=== PATIENT | female | born 1990 ===

== ENCOUNTER 2017-05-02 00:20 | Emergency (ER) | payer MEDICAID ==
[2017-05-02 00:30] VITALS: RESP 16; TEMP 98.1; O2SAT 98
[2017-05-02] MEDS ORDERED: Albuterol-Ipratrop 3 mg / 0.5 (3 ml) UD ONE (00:39)
--- NOTE | 2017-05-02 01:34 | C.PDOC ---
History Of Present Illness 26 year old female with a Hx of asthma presents to the ER with a complaint of cough and congestion for the past week that has worsened tonight. Patient states the cough is persistent causing post tussive vomiting. Patient reports her inhaler medication has therefore has not used it and has been using vicks. Denies fever or chest pain. Time Seen by Provider: 05/02/17 00:31 Chief Complaint (Nursing): Cough, Cold, Congestion History Per: Patient History/Exam Limitations: no limitations Onset/Duration Of Symptoms: Days Location Of Pain: None Sick Contacts (Context): None Associated Symptoms: Cough, Nasal Congestion, Vomiting (Post tussive). denies: Fever Ear Symptoms: Bilateral: None Recent travel outside of the [place]: No Past Medical History Reviewed: Historical Data, Nursing Documentation, Vital Signs Vital Signs: Last Vital Signs Temp 98.1 F 05/02/17 02:04 Pulse 84 05/02/17 02:04 Resp 16 05/02/17 02:04 BP 120/90 05/02/17 02:04 Pulse Ox 98 05/02/17 03:01 - Medical History PMH: Asthma Surgical History: No Surg Hx Family History: States: Unknown Family Hx - Social History Hx Alcohol Use: Yes Hx Substance Use: No - Immunization History Hx Tetanus Toxoid Vaccination: Yes Hx Influenza Vaccination: Yes Hx Pneumococcal Vaccination: No Review Of Systems Constitutional: Negative for: Fever ENT: Positive for: Nose Congestion Cardiovascular: Negative for: Chest Pain Respiratory: Positive for: Cough Gastrointestinal: Positive for: Vomiting (Post tussive) Physical Exam - Physical Exam Appears: Non-toxic, No Acute Distress Skin: Normal Color, Warm, Dry Head: Atraumatic, Normacephalic Eye(s): bilateral: Normal Inspection, EOMI Ear(s): Bilateral: Normal Nose: Other (Congestion) Oral Mucosa: Moist Throat: Normal, No Erythema, No Exudate Neck: Normal, Supple Chest: Symmetrical, No Tenderness Cardiovascular: Rhythm Regular Respiratory: Normal Breath Sounds, No Accessory Muscle Use, No Rales, No Rhonchi , No Wheezing Gastrointestinal/Abdominal: Soft, No Tenderness Neurological/Psych: Oriented x3, Normal Speech, Normal Cognition ED Course And Treatment O2 Sat by Pulse Oximetry: 98 (room air) Pulse Ox Interpretation: Normal Progress Note: Nebulizer treatment administered. Patient reports improvement of condition after nebulizer treatment, no chest pain. No SOB. Pt will discharge home with Rx and instructions to follow up with PMD in 1-2 days. Disposition - Disposition Disposition: HOME/ ROUTINE Disposition Time: 01:32 Condition: STABLE Additional Instructions: Follow up with PMD in 1-2 days. Return to ER if symptoms persist or worsen. Prescriptions: Albuterol 0.083% [Albuterol 0.083% Inhal Linnea (2.5 mg/3 ml) UD] 2.5 mg IH Q6 PRN #30 neb PRN Reason: Shortness Of Breath Azithromycin [Zithromax] 250 mg PO DAILY #6 tab Oxymetazoline 0.05% [Afrin 0.05%] 1 spr NS Q12H #1 bottle predniSONE [Prednisone] 40 mg PO DAILY #8 tab Instructions: Acute Bronchitis (ED) Forms: [facility] (Sudanese) - Clinical Impression Clinical Impression: Bronchitis - Scribe Statement The provider has reviewed the documentation as recorded by the Scribe Miles Hays All medical record entries made by the Justinibshirlene were at my direction and personally dictated by me. I have reviewed the chart and agree that the record accurately reflects my personal performance of the history, physical exam, medical decision making, and the department course for this patient. I have also personally directed, reviewed, and agree with the discharge instructions and disposition.
[2017-05-02 02:05] VITALS: BP 120/90; PULSE 84
== END 2017-05-02 02:05 | disposition home or self-care (01) ==
LOC: C.ER 00:20
DX: J40 Bronchitis, not specified as acute or chronic (principal)

== ENCOUNTER 2017-10-16 06:35 | Emergency (ER) | payer MEDICAID, OTHER ==
[2017-10-16 06:43] VITALS: RESP 18; O2SAT 98
[2017-10-16] MEDS ORDERED: Aluminum Hydroxide/Magnesium Hydroxide Susp (30 mL) PO STA (07:17)
--- NOTE | 2017-10-16 07:39 | C.PDOC ---
History Of Present Illness Patient presents to ED with c/o epigastric abdominal pain associated with nausea developed 2 hours [employer]. Patient states last night she took 2 naprosen for sore throat and woke up this more with pain. Patient denies vomiting, diarrhea, dysuria, vaginal bleeding, vaginal discharge or any other complaints at this time. Time Seen by Provider: 10/16/17 07:11 Chief Complaint (Nursing): Abdominal Pain History Per: Patient History/Exam Limitations: no limitations Onset/Duration Of Symptoms: Hrs Current Symptoms Are (Timing): Still Present Location Of Pain/Discomfort: Epigastric Radiation Of Pain To:: None Past Medical History Reviewed: Historical Data, Nursing Documentation, Vital Signs Vital Signs: Last Vital Signs Temp 98 F 10/16/17 06:39 Pulse 76 10/16/17 06:39 Resp 18 10/16/17 06:39 BP 134/95 H 10/16/17 06:39 Pulse Ox 98 10/16/17 09:41 - Medical History PMH: Asthma Surgical History: No Surg Hx Family History: States: No Known Family Hx - Social History Hx Alcohol Use: Yes Hx Substance Use: No - Immunization History Hx Tetanus Toxoid Vaccination: Yes Hx Influenza Vaccination: Yes Hx Pneumococcal Vaccination: No Review Of Systems Except As Marked, All Systems Reviewed And Found Negative. Gastrointestinal: Positive for: Nausea, Abdominal Pain Physical Exam - Physical Exam Appears: Non-toxic, No Acute Distress Skin: Warm, Dry, No Rash Head: Atraumatic, Normacephalic Oral Mucosa: Moist Neck: Normal ROM, Supple Cardiovascular: Rhythm Regular Respiratory: Normal Breath Sounds, No Rales, No Rhonchi, No Wheezing Gastrointestinal/Abdominal: Bowel Sounds, Soft, Tenderness (Epigastric and Hypogastrium ), No Guarding, No Rebound Back: No CVA Tenderness, No Vertebral Tenderness Extremity: Normal ROM, Capillary Refill (<2 seconds) Neurological/Psych: Oriented x3, Normal Speech, Normal Cognition ED Course And Treatment - Laboratory Results Result Diagrams: 10/16/17 08:06 10/16/17 08:06 O2 Sat by Pulse Oximetry: 98 (RA) Pulse Ox Interpretation: Normal Medical Decision Making Medical Decision Making: Assessment: Abdominal pain Progress: On re evaluation patient states improvement on pain but still c/o mild nausea. More Nausea medication given, re eval pending for dispo 1021 - Patient states improvement. No further symptoms. Will discharge home to follow up with pmd in 2 dys. Disposition Counseled Patient/Family Regarding: Studies Performed, Diagnosis, Need For Followup, Rx Given - Disposition Referrals: Non [facility] Provider, [Primary Care Provider] - [facility] [Outside] Disposition: HOME/ ROUTINE Disposition Time: 10:22 Condition: IMPROVED Additional Instructions: follow up with your doctor in 2 days call to make an appointment take medications as needed return to ER if symptoms worsens or progress do not take naprosyn on an empty stomach Prescriptions: Famotidine [Pepcid] 20 mg PO BID #20 tab Ondansetron ODT [Zofran ODT] 4 mg PO TID PRN #12 odt PRN Reason: Nausea/Vomiting Instructions: Acute Abdomen (Belly Pain), Adult (DC) Forms: [facility] (Tamazight), General Discharge Instructions, Work Excuse - Clinical Impression Clinical Impression: Abdominal pain - Scribe Statement The provider has reviewed the documentation as recorded by the Justinibshirlene Guillen All medical record entries made by the Justinibshirlene were at my direction and personally dictated by me. I have reviewed the chart and agree that the record accurately reflects my personal performance of the history, physical exam, medical decision making, and the department course for this patient. I have also personally directed, reviewed, and agree with the discharge instructions and disposition.
[2017-10-16] MEDS ORDERED: Aluminum Hydroxide/Magnesium Hydroxide Susp (30 mL) ONE (07:42)
[2017-10-16 08:10] LABS: BASO % 0.4 % (0.0-2.0); EOS # 0.1 K/uL (0.0-0.7); EOS % 0.7 % (0.0-4.0); HEMOGLOBIN 13.9 g/dL (11.0-16.0); LYMPH % 8.4 % (20.0-40.0); MEAN CORPUSCULAR HEMOGLOBIN 30.8 pg (27.0-31.0); MEAN CORPUSCULAR HGB CONC 34.2 g/dL (33.0-37.0); MONO # 0.6 K/uL (0.0-0.8); MONO % 4.6 % (0.0-10.0); NEUT # 10.5 K/uL (1.8-7.0); NEUT % 85.9 % (50.0-75.0); PLATELET COUNT 441 K/uL (130-400); RBC 4.52 Mil/uL (3.80-5.20); RED CELL DISTRIBUTION WIDTH 11.9 % (11.5-14.5); WHITE BLOOD COUNT 12.2 K/uL (4.8-10.8)
[2017-10-16 08:18] LABS: SQUAMOUS EPITHIAL < 1 /hpf (0-5); URINE BILIRUBIN NEGATIVE (NEGATIVE); URINE BLOOD NEGATIVE (NEGATIVE); URINE CLARITY Clear (Clear); URINE COLOR Straw (YELLOW); URINE GLUCOSE (UA) NORMAL (Normal); URINE LEUKOCYTE ESTERASE NEG Leu/uL (Negative); URINE PROTEIN NEGATIVE (NEGATIVE); URINE UROBILINOGEN NORMAL mg/dL (0.2-1.0)
[2017-10-16 08:40] LABS: ALT/SGPT 18 U/L (9-52); AST/SGOT 26 U/L (14-36); BLOOD UREA NITROGEN 14 mg/dL (7-17); CALCIUM 9.1 mg/dl (8.6-10.4); GFR AFRICAN-AMERICAN > 60; GFR NON-AFRICAN AMERICAN > 60; LIPASE 63 U/L (23-300)
[2017-10-16 08:46] LABS: BANDS 1 % (0-2); EOSINOPHIL 1 % (0-4); MONOCYTE 5 % (0-10); NEUTROPHIL 87 % (50-75); TOTAL CELLS COUNTED 100
[2017-10-16 08:47] LABS: LYMPHOCYTE 6 % (20-40); PLATELET ESTIMATE NORMAL (NORMAL)
--- NOTE | 2017-10-16 10:18 | RAD ---
PROCEDURE: Radiographs of the chest and abdomen (obstructive series) HISTORY: abd. pain COMPARISON: No prior. TECHNIQUE: AP radiograph of the chest, with upright and supine radiographs of the abdomen. FINDINGS: CHEST: Lungs: Clear. Cardiovascular: Normal size heart. No pulmonary vascular congestion. Pleura: No pleural fluid. No pneumothorax. Other findings: None. ABDOMEN AND PELVIS: Bowel: Unremarkable bowel gas pattern. No evidence of mechanical obstruction. Free air: None. Bones: Unremarkable. Other findings: None. IMPRESSION: Unremarkable radiographs of chest and abdomen. No evidence of mechanical bowel obstruction.
[2017-10-16 10:31] VITALS: BP 113/78; PULSE 63; TEMP 98.5
== END 2017-10-16 10:37 | disposition home or self-care (01) ==
LOC: SUPCPDRO 06:35 → C.ER 06:35
DX: R10.13 Epigastric pain (principal)
CPT/HCPCS: 74022; 80053; 81001; 83690; 85025; 96372; 96374; 96375; 96376; 99284; C9113; J1885; J2405

== ENCOUNTER 2018-04-01 12:17 | Emergency (ER) | payer SELFPAY ==
[2018-04-01 12:45] VITALS: BP 114/81; PULSE 77; TEMP 99.3; O2SAT 98; BMI 36.8
--- NOTE | 2018-04-01 12:52 | C.PDOC ---
History Of Present Illness 27 y/o female, 14 weeks ( A0), with PMH of asthma presents to the ER c/o headache x 1 day. Patient describes the pain as throbbing, 8/10 on left side of forehead. Associated nausea and photophobia. This is her second migraine in the past 1 week. She has not taken any medications for pain. She has been trying to stay hydrated, drinking 48 oz water per day. Denies head injury, history of migraines, vision changes, dizziness, weakness, numbness, paresthesias, difficulty walking or speaking, ear pain, sore throat, cough, vomiting, abdominal pain, vaginal bleeding. Chief Complaint (Nursing): Headache History Per: Patient History/Exam Limitations: no limitations Onset/Duration Of Symptoms: Days Current Symptoms Are (Timing): Still Present Severity: Moderate Past Medical History Reviewed: Historical Data, Nursing Documentation, Vital Signs Vital Signs: Last Vital Signs Temp 99.3 F 04/01/18 12:36 Pulse 77 04/01/18 12:36 Resp 18 04/01/18 12:36 BP 114/81 04/01/18 12:36 Pulse Ox 98 04/01/18 12:36 - Medical History PMH: Asthma Surgical History: No Surg Hx Family History: States: No Known Family Hx - Social History Hx Alcohol Use: Yes Hx Substance Use: No - Immunization History Hx Tetanus Toxoid Vaccination: Yes Hx Influenza Vaccination: Yes Hx Pneumococcal Vaccination: No Review Of Systems Except As Marked, All Systems Reviewed And Found Negative. Constitutional: Negative for: Fever, Chills, Sweats Eyes: Positive for: Other (photophobia). Negative for: Pain, Vision Change, Conjunctivae Inflammation, Eyelid Inflammation, Redness ENT: Negative for: Ear Pain, Ear Discharge, Nose Pain, Nose Discharge, Nose Congestion, Mouth Pain, Mouth Swelling, Throat Pain, Throat Swelling Cardiovascular: Negative for: Chest Pain, Palpitations Respiratory: Negative for: Cough, Shortness of Breath, SOB with Excertion, Pleuritic Pain Gastrointestinal: Positive for: Nausea. Negative for: Vomiting, Abdominal Pain Genitourinary: Negative for: Dysuria, Frequency, Vaginal Bleeding Musculoskeletal: Negative for: Neck Pain, Shoulder Pain, Back Pain Skin: Negative for: Rash, Bruising Neurological: Positive for: Headache. Negative for: Weakness, Numbness, Incoordination, Confusion, Dizziness Physical Exam - Physical Exam Appears: Well, Non-toxic, No Acute Distress Skin: Normal Color, Warm, Dry Head: Atraumatic, Normacephalic Eye(s): bilateral: Normal Inspection, PERRL, EOMI Ear(s): Bilateral: Normal Nose: Normal Oral Mucosa: Moist Tongue: Normal Appearing Lips: Normal Appearing Throat: Normal, No Erythema, No Exudate Neck: Normal, Normal ROM, Supple, No Other (meningeal signs) Lymphatic: Normal Exam, No Adenopathy Chest: Symmetrical, No Deformity, No Tenderness Cardiovascular: Rhythm Regular Respiratory: Normal Breath Sounds, No Decreased Breath Sounds, No Accessory Muscle Use, No Rales, No Rhonchi, No Wheezing Gastrointestinal/Abdominal: Normal Exam, Soft, No Tenderness Back: Normal Inspection, No Decreased ROM, No Muscle Spasm, No Paraspinal Tenderness Extremity: Bilateral: Atraumatic, No Pedal Edema, Normal Color And Temperature, Normal ROM Pulses: Left Radial: Normal, Right Radial: Normal Neurological/Psych: Oriented x3, Normal Speech, Normal Cognition, Normal Cranial Nerves, No Cerebellar Signs, Normal Motor, Normal Sensation Gait: Steady Other Neurological Findings: No Facial Palsy, No Tongue Deviation ED Course And Treatment O2 Sat by Pulse Oximetry: 98 (RA) Pulse Ox Interpretation: Normal Medical Decision Making Medical Decision Making: Initial Plan: --Benadryl PO --Reglan PO --Tylenol PO On re-eval pt reports significantly decreased pain and resolution of nausea. Comfortable with discharge home. Impression: Migraine Plan: --Tylenol as needed for headache --Continue care --Followup with OBGYN as scheduled --Return to ED for new or worsening symptoms Disposition - Disposition Referrals: Jose F Kern MD [Staff Provider] - Alycia Nair MD [Staff Provider] - Disposition: HOME/ ROUTINE Disposition Time: 13:30 Condition: IMPROVED Additional Instructions: Take tylenol every 4 hours as needed for headache Increase fluids Continue vitamins Followup with primary doctor within 2 days Followup with OBGYN as scheduled Return to ER if symptoms worsen Instructions: Medications and , Migraine Headache (DC) Forms: [facility] [employer] [facility] (Icelandic), Work Excuse - POA Present On Arrival: None - Clinical Impression Clinical Impression: Migraine, - PA / BRAKE TESTER / Resident Statement MD/DO has reviewed & agrees with the documentation as recorded. - Scribe Statement The provider has reviewed the documentation as recorded by the Scribe Ethan Barahona Provider Attestation All medical record entries made by the Scribe were at my direction and personally dictated by me. I have reviewed the chart and agree that the record accurately reflects my personal performance of the history, physical exam, medical decision making, and the department course for this patient. I have also personally directed, reviewed, and agree with the discharge instructions and disposition.
[2018-04-01 13:53] VITALS: RESP 20
== END 2018-04-01 13:52 | disposition home or self-care (01) ==
LOC: C.ER 12:17
DX: O26.891 Other specified pregnancy related conditions, first trimester (principal); G43.909 Migraine, unspecified, not intractable, without status migrainosus; Z3A.14 14 weeks gestation of pregnancy